=== PATIENT | female | born 1985 | race Caucasian/White ===

== ENCOUNTER → 2024-05-04 08:08 | Outpatient (REF) | payer BC, SELFPAY | LOC: HWWDC 08:08 | PROVIDERS: ATTENDING PHYSICIAN Obstetrics & Gynecology; FAMILY PHYSICIAN Nurse Practitioner Family | DX: Z12.31 Encounter for screening mammogram for malignant neoplasm of breast (principal) | CPT/HCPCS: 77063; 77067 ==

== ENCOUNTER 2024-07-12 08:40 | Emergency (ER) | payer BC, SELFPAY ==
[2024-07-12 08:41] VITALS: BP 138/92
--- NOTE | 2024-07-12 09:16 | ED.GENMED ---
History of Present Illness
General
Chief Complaint: Musculo-Skeletal Complaint
Source: patient
Time Seen by Provider: 07/12/24 09:02
History of Present Illness
History of Present Illness:
39-year-old female with no significant past medical history presenting to the emergency department for atraumatic right ankle pain that started 2 days ago, went to [facility] where she was told she likely had a sprain or torn ligament but
states she never had any specific injury to the ankle. Notes pain increases with range of motion or ambulating. Notes some mild soft tissue swelling as well. No other symptoms including fevers, denies any previous history of injury or surgery.
No other concerns at this time.
Past History
Past History
ED Past Medical History: None
ED Past Surgical History: None
Social History
Tobacco: Non-smoker
Alcohol: None
Drug: None
Personal:
Living: with family
Employment: Employed
Family History
Family History: Other (Noncontributory)
Review of Systems
Review of Systems
All Other Systems: ROS reviewed and negative except as documented in HPI and ROS
Phy Exam
Physical Exam
Physical Exam:
GENERAL: Alert , in no apparent distress
EYE: conjunctiva clear
Head: Normocephalic atraumatic
NECK: Supple,
ENT: mmm.
LUNGS: no acute respiratory distress
NEUROLOGICAL: Alert and oriented
SKIN: Warm and dry, skin intact.
MUSCULOSKELETAL: Right foot/ankle: mild STS overlying lateral malleolus with very faint erythema as well. tenderness to palpation in same area. Patient allows for full active and passive ROM but has pain with plantar flexion and ankle eversion.
Easily palpable pedal/tibia pulse. CR < 2 sec.
PSYCH: Normal and appropriate interaction.
Scores
Heart Failure Risk
Heart Failure Risk Score: Not Applicable
Heart Score for Chest Pain Patients
STEMI patient?: Not applicable
Withdrawal Assessment of Alcohol
Withdrawal Assessment Completed?: Not applicable
Course
Orders/Labs/Results
Orders:
Orders
07/12/24 08:47
CR Ankle - Right Min 3 Views * Urgent
Comment:
Reason For Exam: pain and swelling
Vital Signs
Initial and Last Documented VS:
Initial Vital Signs
Temp Pulse Resp BP Pulse Ox
98.2 F 86 16 138/92 99
07/12/24 08:41 07/12/24 08:41 07/12/24 08:41 07/12/24 08:41 07/12/24 08:41
Last Documented Vital Signs
Temp Pulse Resp BP Pulse Ox
98.2 F 86 16 138/92 99
07/12/24 08:41 07/12/24 08:41 07/12/24 08:41 07/12/24 08:41 07/12/24 08:41
MDM/Problems Addressed
Differential Diagnosis Includes:
gout, tendonitis, less concern for sprain/fx given no mechanism for injury
MDM/Problems Addressed:
39-year-old female presenting to the emergency department for evaluation of right lateral ankle pain that started on Tuesday without any known trauma. Went to a orthopedic urgent care where she was told she likely had a sprain. Pain and soft
tissue swelling continue. X-ray ordered here which does not show any abnormalities other than some mild soft tissue swelling. Given the location combined with the erythema and no trauma I do suspect gout is a possibility. Patient is afebrile and
allows for range of motion making septic joint much less likely. Recommend a 5 to 7-day course of anti-inflammatory. Discussed return precautions. Stable for discharge.
*Radiology
Radiology exam reviewed: preliminary read by ED provider (no fx)
*Pulse Oximetry
Patient hypoxic: no
*Critical Care Note
Total Time (30-74mins, 75-104mins- exclusive of procedures): Not Applicable
ED Attending Note
-
Portions of this chart may have been created with voice recognition software.� Occasional wrong word or��sound alike� substitutions may have occurred due to the inherent limitations of voice recognition software.
Discharge Plan
Departure
Patient Disposition: Home (Routine Discharge)
Date of Disposition: 07/12/24
Time of Disposition: 09:16
Patient with high blood pressure during this ER visit?: Yes
Discharge Problem:
Ankle pain, right
Instructions: Gout
Prescriptions:
New
naproxen 500 mg tablet
500 mg PO BID 7 Days Qty: 14 0RF
Rx Instructions:
Take with food
No Action
Levothroid Tab
25 mcg PO DAILY
acetaminophen 325 MG tablet
650 mg PO Q4HPRN PRN (Reason: mild pain) 0RF
sennosides-docusate sodium 1 TABLET tablet
1 tab PO DAILYPRN PRN (Reason: constipation) Qty: 30 0RF
ibuprofen 600 MG tablet
600 mg PO Q4HPRN PRN (Reason: moderate pain/cramps) Qty: 30 0RF
albuterol sulfate [Proventil HFA] 90 MCG/PUFF HFA aerosol inhaler
1 puff inhalation Q4HPRN PRN (Reason: shortness of breath) Qty: 1 0RF
azithromycin 250 MG tablet
250 mg PO DAILY Qty: 6 0RF
Rx Instructions:
2 pills day 1, 1 pill days 2-5
Referrals:
Mckenna Reilly CRNP [Family Provider] -
Stand Alone Forms: Return to Work
Interventions
Interventions:
*Risk Screen - Suicide Last Done: 07/12/24 08:41
*General Assessment Last Done: 07/12/24 08:41
*Neglect/Abuse Screening Last Done: 07/12/24 08:41
ED- Fall Risk Assessment Last Done: 07/12/24 09:20
*ED COVID-19 Vaccine History Last Done: 07/12/24 08:41
*Nursing Disposition Last Done: 07/12/24 09:20
ED-Musculoskeletal Assessment Last Done: 07/12/24 08:59
Discharge Date and Time
Discharge Date/Time: 07/12/24 09:21
Print Language: DJIBOUTIAN
== END 2024-07-12 09:21 | disposition home or self-care (01) ==
LOC: EMR 08:40
PROVIDERS: EMERGENCY PHYSICIAN Student in an Organized Health Care Education/Training Program; FAMILY PHYSICIAN Nurse Practitioner Family
DX: M25.571 Pain in right ankle and joints of right foot (principal)
CPT/HCPCS: 99283; 73610